=== PATIENT | male | born 1985 | race Caucasian/White ===

== ENCOUNTER 2025-03-23 08:42 | Inpatient (IN) | payer OTHER, MEDICAID ==
[~2025-03-23] VITALS: Ht 157.5 cm; Wt 90.3 kg
[2025-03-23 08:47] VITALS: O2SAT 100
[2025-03-23] MEDS: ACETAMINOPHEN 1000MG/100ML 100 ML IV ONE (09:37)
[2025-03-23 10:39] LABS: HEMATOCRIT. 44.0 % (42.0-52.0); HEMOGLOBIN. 14.6 g/dL (14.0-18.0); MEAN PLATELET VOLUME 10.0 fl (7.4-10.4); PLATELET 236 x1000/uL (130-400); RED BLOOD CELL COUNT 5.25 mill/uL (4.7-6.1); RED CELL DISTRIBUTION WIDTH 13.5 % (11.6-14.6)
[2025-03-23 11:00] LABS: CREATININE 1.0 mg/dL (0.6-1.3); UREA NITROGEN BLOOD 8 mg/dL (9-23)
[2025-03-23 11:11] LABS: BAND% 4.0 % (1.0-6.0); LYMPHOCYTES % MANUAL 3.0 % (20.0-50.0); MONOCYTES % MANUAL 5.0 % (2.0-8.0); NEUTROPHILS % MANUAL 88.0 % (45.0-75.0)
[2025-03-23 11:12] LABS: PLATELET ESTIMATE NORMAL
[2025-03-23] MEDS ORDERED: DIPHENHYDRAMINE 50MG/ML VIAL IV PRN (18:00)
[2025-03-23] MEDS ORDERED: ONDANSETRON HCL 4MG/2ML INJ IV PRN (18:00)
[2025-03-23] MEDS ORDERED: ACETAMINOPHEN 650MG/20.3ML UDC PO PRN ×2 (18:00)
[2025-03-23] MEDS ORDERED: MAGNESIUM/ALUMINUM HYDROXIDE/SIMETHICONE 30ML UDC PO PRN (18:00)
[2025-03-23] MEDS: MORPHINE SULFATE 4 MG/ML INJ (FOR IV/IM USE) IV PRN (18:12)
[2025-03-23] MEDS ORDERED: NALOXONE HCL 0.4MG/ML VIAL IV PRN (18:15)
[2025-03-23 18:24] VITALS: BP 123/72; PULSE 92; RESP 16; TEMP 37.3
[2025-03-23] MEDS: DEXT 5%/0.45% NACL 1000ML 1,000 ML IV SCH (19:03)
[2025-03-23 20:00] VITALS: BP 127/70; PULSE 82; RESP 18; TEMP 36.3; O2SAT 98
[2025-03-23] MEDS: FAMOTIDINE 20MG/2ML VIAL IV SCH (20:42)
[2025-03-23] MEDS: KETOROLAC 30MG/ML VIAL IV PRN (20:42)
[2025-03-23 21:11] LABS: CLARITY URINE CLEAR (CLEAR); COLOR URINE YELLOW (YELLOW); GLUCOSE URINE NEGATIVE (NEGATIVE); KETONES URINE NEGATIVE (NEGATIVE); LEUKOCYTE ESTERASE URINE NEGATIVE (NEGATIVE); NITRITE URINE NEGATIVE (NEGATIVE); OCCULT BLOOD URINE NEGATIVE (NEGATIVE); PH URINE 7.0 (4.5-8.0); PROTEIN URINE 1+ (NEGATIVE); SPECIFIC GRAVITY URINE 1.031 (1.005-1.030); UROBILINOGEN URINE 1.0 E.U./dL (0.2-1.0)
[2025-03-23 21:29] LABS: BACTERIA URINE TRACE; RBC URINE NONE SEEN /hpf (0-2); SQUAMOUS EPITHELIAL CELL URINE RARE /lpf (RARE/1+); WBC URINE 0-2 /hpf (0-2)
[2025-03-23 21:33] LABS: *AMPHETAMINES SCREEN URINE NEGATIVE (NEGATIVE)
[2025-03-23 21:34] LABS: *BARBITURATES SCREEN URINE NEGATIVE (NEGATIVE); *BENZODIAZEPINES SCREEN URINE NEGATIVE (NEGATIVE); *COCAINE SCREEN URINE NEGATIVE (NEGATIVE); CANNABINOID URINE SCREEN NEGATIVE (NEGATIVE); ECSTASY MDMA SCREEN URINE NEGATIVE (NEGATIVE); METHADONE URINE SCREEN NEGATIVE (NEGATIVE); OPIATES URINE SCREEN PRESUMPTIVE POSITIVE (NEGATIVE); PHENCYCLIDINE URINE SCREEN NEGATIVE (NEGATIVE)
[2025-03-24] VITALS: BP 123/65; PULSE 75; RESP 19; TEMP 36.7; O2SAT 100
[2025-03-24 04:00] VITALS: BP 123/63; PULSE 75; RESP 17; TEMP 36.3; O2SAT 100
[2025-03-24 06:52] LABS: BASOPHILS % 0.3 % (0.0-2.0); EOSINOPHILS % 0.3 % (0.0-5.0); HEMATOCRIT. 42.9 % (42.0-52.0); HEMOGLOBIN. 14.1 g/dL (14.0-18.0); LYMPHOCYTES % 8.7 % (20.0-50.0); MEAN PLATELET VOLUME 10.5 fl (7.4-10.4); MONOCYTES % 9.1 % (2.0-8.0); NEUTROPHILS % 81.6 % (40.0-76.0); PLATELET 192 x1000/uL (130-400); RED BLOOD CELL COUNT 4.95 mill/uL (4.7-6.1); RED CELL DISTRIBUTION WIDTH 13.8 % (11.6-14.6)
[2025-03-24 07:07] LABS: CREATININE 1.0 mg/dL (0.6-1.3)
[2025-03-24 07:09] LABS: UREA NITROGEN BLOOD 9 mg/dL (9-23)
[2025-03-24 07:11] LABS: PHOSPHORUS 2.0 mg/dL (2.5-4.9)
[2025-03-24 08:00] VITALS: BP 121/61; PULSE 78; RESP 12; TEMP 37; O2SAT 100
[2025-03-24 12:00] VITALS: BP 150/89; PULSE 75; RESP 17; TEMP 36.9; O2SAT 99
[2025-03-24] MEDS: POTASSIUM PHOSPHATE 20 MMOL in DEXT 5% WATER 243.3333 ML IV SCH (15:47)
[2025-03-24 16:00] VITALS: BP 136/78; PULSE 80; RESP 18; TEMP 37; O2SAT 100
[2025-03-24 20:00] VITALS: BP 138/72; PULSE 90; RESP 18; TEMP 36.4; O2SAT 98
[2025-03-25] VITALS: BP 134/64; PULSE 91; RESP 18; TEMP 37.2; O2SAT 98
[2025-03-25 04:00] VITALS: BP 140/59; PULSE 95; RESP 19; TEMP 38; O2SAT 98
[2025-03-25 08:00] VITALS: BP 149/87; PULSE 107; RESP 19; TEMP 37.6; O2SAT 97
[2025-03-25 12:00] VITALS: BP 116/60; PULSE 95; RESP 18; TEMP 37.9; O2SAT 97
[2025-03-25] MEDS: AMPICILLIN SOD/SULBACTAM NA 3 G in SODIUM CHLORIDE 0.9% 100 ML IV SCH (15:10)
[2025-03-25 16:00] VITALS: BP 132/63; PULSE 101; RESP 19; TEMP 37.6; O2SAT 98
[2025-03-25 20:00] VITALS: BP 122/61; PULSE 109; RESP 17; TEMP 39.4; O2SAT 98
[2025-03-26] VITALS: BP 131/41; PULSE 112; RESP 18; TEMP 39.5; O2SAT 97
[2025-03-26] MEDS: ACETAMINOPHEN 650MG SUPP PR PRN (03:28)
[2025-03-26 04:00] VITALS: BP 118/70; PULSE 100; RESP 18; TEMP 38.4; O2SAT 98
[2025-03-26 04:52] VITALS: BP 131/49; PULSE 112; RESP 18
[2025-03-26] MEDS: MORPHINE SULFATE 4 MG/ML INJ (FOR IV/IM USE) IV PRN (04:52)
== END 2025-03-26 07:30 | disposition left against medical advice (07) | DRG 115 ==
LOC: EDBD 08:42 → ER 08:42 → EDBEDREQ 12:39 → EDBEDREQTM 12:39 → ENRESERV 13:46 → 5WST 17:34 → 6EST 03-24 10:55
PROVIDERS: ADMIT Internal Medicine; ATTEND Internal Medicine
DX: S02.651A Fracture of angle of right mandible, initial encounter for closed fracture (principal); E83.39 Other disorders of phosphorus metabolism; Y04.0XXA Assault by unarmed brawl or fight, initial encounter; Z53.29 Procedure and treatment not carried out because of patient's decision for other reasons; S09.8XXA Other specified injuries of head, initial encounter; Y93.89 Activity, other specified; Y92.89 Other specified places as the place of occurrence of the external cause; Y99.8 Other external cause status
CPT/HCPCS: 36415; 70486; 73552; 80048; 80305; 81003; 83735; 84100; 85025; 99285; A4606; J0295; J1308; J1885; J2270; J3490; J7050; J7060; J0131